=== PATIENT | male | born 1930 | race Two or more races ===

== ENCOUNTER 2016-07-03 10:43 | Emergency (ER) | payer SELFPAY ==
[~2016-07-03] VITALS: Ht 162.6 cm; Wt 68.0 kg
[~2016-07-03 10:43] MED LIST: ASPI-498 OR; ATO40T PO; OMEP20CA5 PO
[2016-07-03 12:47] VITALS: BP 172/96
== END 2016-07-03 13:42 | disposition home or self-care (01) ==
LOC: ER 10:49
DX: L03.031 Cellulitis of right toe (principal); Z91.041 Radiographic dye allergy status; E11.9 Type 2 diabetes mellitus without complications; I10 Essential (primary) hypertension

== ENCOUNTER 2016-07-20 09:40 | Emergency (ER) | payer SELFPAY ==
[~2016-07-20] VITALS: Ht 167.6 cm; Wt 78.9 kg
[~2016-07-20 09:40] MED LIST changes: -OMEP20CA5 PO; +OMEP20CA74 PO
[2016-07-20] MEDS: cloNIDine HCL 0.1 MG TAB PO ONE (09:45)
[2016-07-20] MEDS: cloNIDine HCL 0.1 MG TAB ONE (09:55)
[2016-07-20 10:19] VITALS: BP 188/102
== END 2016-07-20 10:45 | disposition home or self-care (01) ==
LOC: ER 09:40
DX: L03.031 Cellulitis of right toe (principal); Z91.041 Radiographic dye allergy status; E11.9 Type 2 diabetes mellitus without complications; Z79.82 Long term (current) use of aspirin; I10 Essential (primary) hypertension